=== PATIENT | male | born 1995 | race American Indian/Alaskan Native ===

== ENCOUNTER 2020-05-04 00:22 | Emergency (ER) | payer SELFPAY ==
[2020-05-04 01:10] VITALS: BP 141/96
== END 2020-05-04 02:00 | disposition left against medical advice (07) ==
LOC: ED 00:22
DX: M79.622 Pain in left upper arm (principal); Z53.21 Procedure and treatment not carried out due to patient leaving prior to being seen by health care provider

== ENCOUNTER 2020-05-04 18:26 | Emergency (ER) | payer SELFPAY | END 2020-05-04 19:27 | disposition left against medical advice (07) | LOC: ED 18:26 | DX: M79.602 Pain in left arm (principal); Z53.21 Procedure and treatment not carried out due to patient leaving prior to being seen by health care provider ==